=== PATIENT | female | born 2000 | race Two or more races ===

== ENCOUNTER 2024-09-14 13:30 | Inpatient (IN) | payer OTHER ==
[~2024-09-14] VITALS: Ht 157.5 cm; Wt 65.8 kg
[2024-09-16] VITALS (7 sets, daily range): BP systolic 89–126; BP diastolic 45–81
[2024-09-16] MEDS ORDERED: MISOPROSTOL 50 MCG TABLET VAG STA (12:14)
[2024-09-16] MEDS ORDERED: RINGERS SOLUTION,LACTATED 1,000 ML IV SCH (12:15)
[2024-09-16] MEDS ORDERED: PRENATAL TABLE1 EAC1 PO (12:20)
[2024-09-16] MEDS ORDERED: IRON 100 PLUS1 EACH PO (12:20)
[2024-09-16 13:30] LABS: HEMATOCRIT 34.2 % (36.0-45.00); MEAN CELL VOLUME 82.5 fL (80.00-100.00); MEAN CORPUSCULAR HEMOGLOBIN 26.6 pg (27.00-32.0); MEAN CORPUSCULAR HGB CONC 32.3 g/dl (32.0-36.0); PLATELET COUNT 147 K/uL (150-450); RED BLOOD COUNT 4.14 M/uL (4.00-6.00); RED CELL DISTRIBUTION WIDTH 18.1 % (11.5-14.5)
[2024-09-16 13:32] LABS: PH,URINE 6.5 (5.0-8.0); URINE APPEARANCE Clear; URINE BILIRRUBIN Negative (NEGATIVE); URINE BLOOD Negative; URINE COLOR Yellow; URINE GLUCOSE Negative (NEGATIVE); URINE KETONE Trace (NEGATIVE); URINE LEUKOCYTE Small; URINE NITRATE Negative; URINE PROTEIN Negative (NEGATIVE)
[2024-09-16 13:36] LABS: URINE BACTERIA 781.1 uL (0.0-1933); URINE CAST 0.15 uL (0.0-1.40); URINE EPITHELIAL CELLS 57.8 uL (0.0-38.8); URINE RBC 6.2 uL (0.0-20.8); URINE WBC 39.5 uL (0.0-23.2)
[2024-09-16 13:53] LABS: INR < 0.93; PARTIAL THROMBOPLASTIN TIME 25.2 SECONDS (22.0-34.0); PROTHROMBIN TIME 9.8 SECONDS (9.0-11.5)
[2024-09-16 14:12] LABS: BILIRUBIN TOTAL 0.93 mg/dL (0.3-1.2); CALCIUM 8.9 mg/dL (8.5-10.1); CREATININE SERUM 0.56 mg/dL (0.55-1.02); GFR 135.37; GLOBULINA 3.6 G/DL (2.4-3.5); POTASSIUM 3.93 mEq/L (3.5-5.1); TOTAL PROTEIN 6.6 gm/dL (6.4-8.2)
[2024-09-16] MEDS ORDERED: MISOPROSTOL 50 MCG TABLET VAG ONE (17:00)
[2024-09-16] MEDS ORDERED: PROMETHAZINE HCL 25 MG/ML AMPUL IV STA ×2 (17:14→21:30)
[2024-09-16] MEDS ORDERED: MEPERIDINE HCL/PF 50 MG/ML VIAL IV STA ×2 (17:14→21:30)
[2024-09-16] MEDS ORDERED: ERYTHROMYCIN BASE OPHT 1GM EACH TUBE OP ONE (23:45)
[2024-09-16] MEDS ORDERED: OXYTOCIN 1,000 ML IV ONE (23:45)
[2024-09-16] MEDS ORDERED: CHLORHEXIDINE GLUCONATE 120 ML BOTTLE TOP ONE ×2 (23:45)
[2024-09-16] MEDS ORDERED: LIDOCAINE HCL 1% 10ML VIAL IJ ONE (23:45)
[2024-09-16] MEDS ORDERED: OxyCODONE HCL/APAP UD (PERCOCET) PO PRN (23:45)
[2024-09-16] MEDS ORDERED: ACETAMINOPHEN 325 MG TABLET PO PRN (23:45)
[2024-09-16] MEDS ORDERED: OXYTOCIN 20 UNITS/1000ML RL PIGGYBAG IV ONE (23:45)
[2024-09-16] MEDS ORDERED: NALOXONE HCL 0.4 MG/ML AMPUL IM ONE (23:45)
[2024-09-17 02:43] VITALS: BP 95/79
[2024-09-17 05:57] LABS: HEMOGLOBIN 9.9 g/dL (12.0-15.00); MEAN CELL VOLUME 81.6 fL (80.00-100.00); MEAN CORPUSCULAR HEMOGLOBIN 26.8 pg (27.00-32.0); MEAN CORPUSCULAR HGB CONC 32.9 g/dl (32.0-36.0); PLATELET COUNT 139 K/uL (150-450); RED BLOOD COUNT 3.68 M/uL (4.00-6.00); RED CELL DISTRIBUTION WIDTH 17.6 % (11.5-14.5)
[2024-09-17 07:14] VITALS: BP 102/49
[2024-09-17] MEDS ORDERED: HYDROCORTISONE 2.5% 30 GM TUBE RECTAL SCH (09:00)
[2024-09-17] MEDS ORDERED: BENZOCAINE/MENTHOL 90 ML BOTTLE TOP SCH (09:00)
[2024-09-17 12:50] VITALS: BP 114/56
[2024-09-17 15:18] VITALS: BP 110/56
[2024-09-17 17:35] VITALS: BP 114/78
[2024-09-18 00:06] VITALS: BP 99/60
[2024-09-18 11:59] VITALS: BP 107/75
== END 2024-09-18 13:13 | disposition home or self-care (01) | DRG 807 ==
LOC: LDR 09-16 09:10 → OB/GYN 09-17 14:24
PROVIDERS: ADMIT Specialist; ATTEND Specialist
PROC: 10E0XZZ Delivery of Products of Conception, External Approach (ICD-10-PCS; principal; 2024-09-16)
PROC: 3E033VJ Introduction of Other Hormone into Peripheral Vein, Percutaneous Approach (ICD-10-PCS; 2024-09-16)
PROC: 3E0P7VZ Introduction of Hormone into Female Reproductive, Via Natural or Artificial Opening (ICD-10-PCS; 2024-09-16)
PROC: 0W8NXZZ Division of Female Perineum, External Approach (ICD-10-PCS; 2024-09-16)
PROC: 4A1HXCZ Monitoring of Products of Conception, Cardiac Rate, External Approach (ICD-10-PCS; 2024-09-16)
DX: O80 Encounter for full-term uncomplicated delivery (principal); Z37.0 Single live birth; Z3A.39 39 weeks gestation of pregnancy; Z20.822 Contact with and (suspected) exposure to COVID-19